=== PATIENT | male | born 1995 | race Caucasian/White ===

== ENCOUNTER 2019-05-23 19:16 | Emergency (ER) | payer OTHER ==
[~2019-05-23] VITALS: Ht 193 cm; Wt 86.2 kg
== END 2019-05-23 22:25 | disposition home or self-care (01) ==
LOC: ER 19:16
DX: S32.591A Other specified fracture of right pubis, initial encounter for closed fracture (principal); S32.491A Other specified fracture of right acetabulum, initial encounter for closed fracture; S00.83XA Contusion of other part of head, initial encounter; W17.89XA Other fall from one level to another, initial encounter; Y93.89 Activity, other specified; Y92.018 Other place in single-family (private) house as the place of occurrence of the external cause; Y99.8 Other external cause status